=== PATIENT | male | born 1975 | race Caucasian/White ===

== ENCOUNTER 2017-11-27 09:15 | Inpatient (IN) | payer BC ==
[2017-11-27 09:29] VITALS: BMI 39.2
--- NOTE | 2017-11-27 10:34 | HP ---
COWS - Scale Resting Pulse: 0= [place] 80 or Below Sweatin=Flushed/Facial Moisture Restless Observation: 3= Extraneous Movement Pupil Size: 1= Pupils >than Normal Bone or Joint Aches: 1= Mild Discomfort Runny Nose/ Eye Tearin= Nasal Congestion GI Upset > 30mins: 1= Stomach Cramp Tremor Observation: 2= Slight Tremor Visible Yawning Observation: 2= >3x During Session Anxiety or Irritability: 4=Extreme Anxiety Goose Flesh Skin: 0=Smooth Skin COWS Score: 17 Admission ROS S - HPI Chief Complaint: "i want to get better, I am sick of living like this. I am scared for my health " Allergies/Adverse Reactions: Allergies Allergy/AdvReac Type Severity Reaction Status Date / Time No Known Allergies Allergy Verified 11/27/17 09:41 History of Present Illness: 42 year old male with a "10 year history of "on & off" oxycodone dependency presents here from detox. Pt stated he was dependent on alcohol about 10 years ago but does not drink anymore. Pt stated he detoxed at [facility] years ago following which he had about a 2 month sobriety period but relapsed since then. Pt denies any medical history, stated he was dx with anxiety but never took the meds for it Exam Limitations: No Limitations - Ebola screening Have you traveled outside of the country in the last 21 days: No (N) Have you had contact with anyone from an Ebola affected area: No Have you been sick,other than usual withdrawal symptoms: No Do you have a fever: No - Review of Systems Constitutional: Chills, Changes in sleep EENT: reports: Other (Does not see out of R eye) Respiratory: reports: No Symptoms reported Cardiac: reports: Palpitations GI: reports: No Symptoms Reported : reports: No Symptoms Reported Musculoskeletal: reports: No Symptoms Reported Integumentary: reports: [place] Neuro: reports: No Symptoms reported Endocrine: reports: [place] Hematology: reports: No Symptoms Reported Psychiatric: reports: Judgement Intact, Anxious Patient History - Patient Medical History Hx Anemia: No Hx Asthma: No Hx Chronic Obstructive Pulmonary Disease (COPD): No Hx Cancer: No Hx Cardiac Disorders: No Hx Congestive Heart Failure: No Hx Hypertension: No Hx Hypercholesterolemia: No Hx Pacemaker: No HX Cerebrovascular Accident: No Hx Seizures: No Hx Diabetes: No Hx Gastrointestinal Disorders: No Hx Liver Disease: No Hx Genitourinary Disorders: No Hx Sexually Transmitted Disorders: No Hx Renal Disease (ESRD): No Hx Thyroid Disease: No Hx Human Immunodeficiency Virus (HIV): No Hx Hepatitis C: No Hx Depression: No Hx Suicide Attempt: No Hx Bipolar Disorder: No Hx Schizophrenia: No - Patient Surgical History Past Surgical History: Yes Hx Neurologic Surgery: No Hx Cataract Extraction: No Hx Cardiac Surgery: No Hx Lung Surgery: No Hx Breast Surgery: No Hx Breast Biopsy: No Hx Abdominal Surgery: No Hx Appendectomy: No Hx Cholecystectomy: No Hx Genitourinary Surgery: No Hx Section: No Hx Orthopedic Surgery: No Other Surgical History: R eye surgery x 25 yrs ago Anesthesia Reaction: No - PPD History Previous Implant?: Yes Documented Results: Negative w/o proof Implanted On Prior [facility] Admission?: No PPD to be Administered?: Yes - Reproductive History Patient is a Female of Child Bearing Age (11 -55 yrs old): No - Smoking Cessation Smoking history: Never smoked Hx Chewing Tobacco Use: No Initiated information on smoking cessation: No 'Breaking Loose' booklet given: 11/27/17 - Substances Abused Oxycodone Route: Oral Frequency: Daily Amount used: 260mg Age of first use: 32 Date of Last Use: 11/27/17 Family Disease History - Family Disease History Family Disease History: Diabetes: Grandparent (Grandma), Mother Admission Physical Exam [facility] - Vital Signs Vital Signs: Vital Signs - 24 hr 11/27/17 09:26 Temperature 96.7 F L Pulse Rate 83 Respiratory 20 Rate Blood Pressure 151/99 - Physical General Appearance: Yes: Moderate Distress, Anxious HEENTM: Yes: Other (R eye deformity) Respiratory: Yes: Within Normal Limits, Chest Non-Tender, Lungs Clear, Normal Breath Sounds, No Respiratory Distress Breast: Yes: Breast Exam Deferred Cardiology: Yes: Regular Rhythm, Regular Rate, S1, S2 Genitourinary: Yes: Polyuria Back: Yes: Normal Inspection Musculoskeletal: Yes: Within Normal Limits Extremities: Yes: Normal Capillary Refill, Normal Inspection Neurological: Yes: Within Normal Limits, Fully Oriented, Alert, Motor Strength 5 /5 Integumentary: Yes: Normal Color, Dry, Warm Lymphatic: Yes: Within Normal Limits - Diagnostic (1) Opioid dependence with withdrawal Current Visit: Yes Status: Acute Cleared for Admission [facility] - Detox or Rehab [facility] Level of Care: Medically Managed Detox Regimen/Protocol: Methadone [facility] Breath Alcohol Content Breath Alcohol Content: 0 Urine Drug Screen - Results Drug Screen Negative: No Urine Drug Screen Results: OXY-Oxycodone
[2017-11-27] MEDS ORDERED: METHADONE HCL 10 MG TABLET (FOR DETOX USE ONLY) PO ONE ×2 (10:56→23:00)
[2017-11-27] MEDS ORDERED: guaiFENesin/D-METHORPHAN HB 10 ML UNIT-DOSE CUPS PO PRN (10:56)
[2017-11-27] MEDS ORDERED: ACETAMINOPHEN 325 MG TABLET (FP) PO PRN (10:56)
[2017-11-27] MEDS ORDERED: MENTHOL/PHENOL 1 EACH UD MM PRN (10:56)
[2017-11-27] MEDS ORDERED: MAGNESIUM CITRATE 300 ML BOTTLE PO PRN (10:56)
[2017-11-27] MEDS ORDERED: P-EPHED 60MG/TRIPROLIDI 2.5MG TABLET PO PRN (10:56)
[2017-11-27] MEDS ORDERED: MAGNESIUM HYDROX 2400MG/30ML ORAL SUSPENSION 30 ML CUP PO PRN (10:56)
[2017-11-27] MEDS ORDERED: MAG HYDROX/AL HYDROX/SIMETH 30 ML UNIT-DOSE CUP PO PRN (10:56)
[2017-11-27] MEDS ORDERED: LOPERAMIDE HCL 2 MG CAPSULE PO PRN (10:56)
[2017-11-27] MEDS: diazePAM 5 MG TABLET PO PRN ×3 (12:19→22:08)
[2017-11-27] MEDS: THIAMINE HCL 100 MG TABLET (FP) PO SCH (22:08)
[2017-11-27 22:25] LABS: URINE APPEARANCE CLEAR; URINE BILIRUBIN NEGATIVE (NEGATIVE); URINE BLOOD NEGATIVE (NEGATIVE); URINE COLOR STRAW; URINE GLUCOSE (UA) NEGATIVE (NEGATIVE); URINE KETONE NEGATIVE (NEGATIVE); URINE LEUK ESTERASE NEGATIVE (NEGATIVE); URINE NITRITE NEGATIVE (NEGATIVE); URINE PROTEIN NEGATIVE (NEGATIVE); URINE UROBILINOGEN NEGATIVE mg/dL (0.2-1.0)
[2017-11-28] MEDS: IBUPROFEN 400 MG TABLET (FP) PO PRN ×3 (00:50→22:11)
[2017-11-28] MEDS: diazePAM 5 MG TABLET PO PRN ×4 (02:17→19:22)
[2017-11-28] MEDS ORDERED: METHADONE HCL 10 MG TABLET (FOR DETOX USE ONLY) PO ONE (10:00)
[2017-11-28 10:05] LABS: HEMATOCRIT 49.2 % (35.4-49); HEMOGLOBIN 16.4 GM/dL (11.7-16.9); MCHC 33.4 g/dl (32.0-35.9); MEAN CELL VOLUME 92.8 fl (80-96); MEAN PLT VOLUME 7.1 fl (7.5-11.1); PLATELET COUNT 226 K/MM3 (134-434); RDW 13.4 % (11.9-15.9); WHITE BLOOD COUNT 8.3 K/mm3 (4.0-10.0)
[2017-11-28] MEDS: PRENATAL VITAMINS W/ FOLIC ACID TABLET (FP) PO SCH (10:36)
[2017-11-28 10:41] LABS: CHLORIDE 105 mmol/L (98-107); POTASSIUM 4.7 mmol/L (3.5-5.1); SODIUM 141 mmol/L (136-145)
--- NOTE | 2017-11-28 10:46 | CONSULT ---
[facility] Psychiatric Consult - Data Date of interview: 11/28/17 Admission source: [facility] Identifying data: Pt. is a 41 year old male, single, without kids, and currently unemployed. This is patient's first admission to [facility]. Pt. admitted to for opiate dependence. Substance Abuse History: - Substances Abused. Oxycodone. Route: Oral. Frequency: Daily. Amount used: 260mg. Age of first use: 32. Date of Last Use : 11/27/17 Medical History: [facility] eye surgery 25 years ago. Psychiatric History: Pt. denies h/o psychiatric hospitalizations, OPC, and suicide attempts. Pt. reports a h/o anxiety and panic attacks. Reports accepting lexapro approximately 10 years ago from his PCP. States he only took the medications for two weeks. Reports having increase anxiety one week ago and requesing to restart lexapro. Physical/Sexual Abuse/Trauma History: Denies. Mental Status Exam - Mental Status Exam Alert and Oriented to: Time, Place, Person Cognitive Function: Good Patient Appearance: Well Groomed Mood: Euthymic Affect: Mood Congruent Patient Behavior: Appropriate, Cooperative Speech Pattern: Clear, Appropriate Voice Loudness: Normal Thought Process: Goal Oriented Thought Disorder: Not Present Hallucinations: Denies Suicidal Ideation: Denies Homicidal Ideation: Denies Insight/Judgement: Poor Sleep: Fair Appetite: Good Muscle strength/Tone: Normal Gait/Station: Normal Psychiatric Findings - Problem List ([place] 1, 2,3) (1) ZION (generalized anxiety disorder) Current Visit: Yes Status: Chronic Comment: Self reports. (2) Opioid dependence with withdrawal Current Visit: Yes Status: Acute - Initial Treatment Plan Initial Treatment Plan: Psychoeducation provided. Detoxification in progress. Lexapro 10mg PO daily. Benefits and side effects discussed. Verbal consent given. Will contine to monitor patient.
[2017-11-28 10:52] LABS: ALBUMIN 4.2 g/dl (3.4-5.0); ALK PHOS 78 U/L (45-117); ANION GAP 7 (8-16); BILIRUBIN,TOTAL 0.5 mg/dL (0.2-1.0); BLOOD UREA NITROGEN 13 mg/dL (7-18); CALCIUM 9.6 mg/dL (8.5-10.1); CO2 29 mmol/L (21-32); CREATININE 0.9 mg/dL (0.7-1.3); GLUCOSE,RANDOM 94 mg/dL (74-106); SGOT/AST 20 U/L (15-37); SGPT/ALT 47 U/L (12-78); TOT PROT 7.8 g/dl (6.4-8.2)
--- NOTE | 2017-11-28 10:53 | PN ---
BHS COWS - Scale Resting Pulse: 2= [place] 101-120 Sweatin= Chills/Flushing Restless Observation: 1= Difficult to Sit Still Pupil Size: 0= Normal to Room Light Bone or Joint Aches: 2= Severe Diffuse Aches Runny Nose/ Eye Tearin= Nasal Congestion GI Upset > 30mins: 2= Nausea/Diarrhea Tremor Observation of Outstretched Hands: 2= Slight Tremor Visible Yawning Observation: 0= None Anxiety or Irritability: 2=Irritable/Anxious Goose Flesh Skin: 0=Smooth Skin COWS Score: 13 BHS Progress Note (SOAP) Subjective: sweat joint aches irritable anxiety Objective: 11/28/17 10:53 Vital Signs Temperature 97.3 F L 11/28/17 10:47 Pulse Rate 112 H 11/28/17 10:47 Respiratory Rate 18 11/28/17 10:47 Blood Pressure 114/63 11/28/17 10:47 O2 Sat by Pulse Oximetry (%) Laboratory Last Values WBC 8.3 K/mm3 (4.0-10.0) 11/28/17 07:30 RBC 5.30 M/mm3 (4.00-5.60) 11/28/17 07:30 Hgb 16.4 GM/dL (11.7-16.9) 11/28/17 07:30 Hct 49.2 % (35.4-49) H 11/28/17 07:30 MCV 92.8 fl (80-96) 11/28/17 07:30 MCH 31.0 pg (25.7-33.7) 11/28/17 07:30 MCHC 33.4 g/dl (32.0-35.9) 11/28/17 07:30 RDW 13.4 % (11.9-15.9) 11/28/17 07:30 Plt Count 226 K/MM3 (134-434) 11/28/17 07:30 MPV 7.1 fl (7.5-11.1) L 11/28/17 07:30 Sodium 141 mmol/L (136-145) 11/28/17 07:30 Potassium 4.7 mmol/L (3.5-5.1) 11/28/17 07:30 Chloride 105 mmol/L (98-107) 11/28/17 07:30 Urine Color Straw 11/27/17 15:20 Urine Appearance Clear 11/27/17 15:20 Urine pH 6.0 (5.0-8.0) 11/27/17 15:20 Ur Specific [place] 1.011 (1.001-1.035) 11/27/17 15:20 Urine Protein Negative (NEGATIVE) 11/27/17 15:20 Urine Glucose (UA) Negative (NEGATIVE) 11/27/17 15:20 Urine Ketones Negative (NEGATIVE) 11/27/17 15:20 Urine Blood Negative (NEGATIVE) 11/27/17 15:20 Urine Nitrite Negative (NEGATIVE) 11/27/17 15:20 Urine Bilirubin Negative (NEGATIVE) 11/27/17 15:20 Urine Urobilinogen Negative mg/dL (0.2-1.0) 11/27/17 15:20 Ur Leukocyte Esterase Negative (NEGATIVE) 11/27/17 15:20 lab noted Assessment: 11/28/17 10:53 withdrawal sx Plan: continue detox
[2017-11-28] MEDS: ESCITALOPRAM OXALATE 10 MG TABLET (FP) PO SCH (11:53)
--- NOTE | 2017-11-28 13:10 | EKG ---
Test Reason : Blood Pressure : / mmHG Vent. Rate : 072 BPM Atrial Rate : 072 BPM P-R Int : 164 ms QRS Dur : 088 ms QT Int : 382 ms P-R-T Axes : 031 -02 015 degrees QTc Int : 418 ms NORMAL SINUS RHYTHM NORMAL ECG NO PREVIOUS ECGS AVAILABLE Confirmed by DAYTON PRINGLE, DANNI ([id number]) on 11/28/2017 1:10:04 PM Referred By: Mark Mojica Confirmed By:DANNI BURRIS MD
[2017-11-28] MEDS: THIAMINE HCL 100 MG TABLET (FP) PO SCH (22:11)
[2017-11-29] MEDS: diazePAM 5 MG TABLET PO PRN ×5 (01:18→22:26)
[2017-11-29] MEDS: IBUPROFEN 400 MG TABLET (FP) PO PRN (06:38)
--- NOTE | 2017-11-29 09:24 | PN ---
BHS COWS - Scale Resting Pulse: 1= [place] 81-100 Sweatin= Chills/Flushing Restless Observation: 1= Difficult to Sit Still Pupil Size: 1= Pupils >than Normal Bone or Joint Aches: 1= Mild Discomfort Runny Nose/ Eye Tearin= Nasal Congestion GI Upset > 30mins: 2= Nausea/Diarrhea Tremor Observation of Outstretched Hands: 1= Tremor [place], Not Seen Yawning Observation: 1= 1-2x During Session Anxiety or Irritability: 2=Irritable/Anxious Goose Flesh Skin: 3=Piloerection COWS Score: 15 BHS Progress Note (SOAP) Subjective: nausea, sweats, interrupted sleep, anxiety, tremors, wishes to accelerate detox schedule to return to work Objective: 11/29/17 09:23 Vital Signs - 24 hr 11/28/17 11/28/17 11/28/17 10:47 15:20 17:47 Temperature 97.3 F L 97.7 F 97.7 F Pulse Rate 112 H 95 H 71 Respiratory 18 20 18 Rate Blood Pressure 114/63 147/86 120/74 11/28/17 11/29/17 11/29/17 21:47 00:30 03:30 Temperature 97.7 F Pulse Rate 67 Respiratory 18 18 18 Rate Blood Pressure 140/93 11/29/17 06:20 Temperature 96.4 F L Pulse Rate 51 L Respiratory 16 Rate Blood Pressure 125/81 Laboratory Tests 11/27/17 11/28/17 11/28/17 15:20 07:30 07:30 WBC 8.3 RBC 5.30 Hgb 16.4 Hct 49.2 H MCV 92.8 MCH 31.0 MCHC 33.4 RDW 13.4 Plt Count 226 MPV 7.1 L Sodium 141 Potassium 4.7 Chloride 105 Carbon Dioxide 29 Anion Gap 7 L BUN 13 Creatinine 0.9 Creat Clearance w eGFR > 60 Random Glucose 94 Calcium 9.6 Total Bilirubin 0.5 AST 20 ALT 47 Alkaline Phosphatase 78 Total Protein 7.8 Albumin 4.2 Urine Color Straw Urine Appearance Clear Urine pH 6.0 Ur Specific [place] 1.011 Urine Protein Negative Urine Glucose (UA) Negative Urine Ketones Negative Urine Blood Negative Urine Nitrite Negative Urine Bilirubin Negative Urine Urobilinogen Negative Ur Leukocyte Esterase Negative RPR Titer 11/28/17 07:30 WBC RBC Hgb Hct MCV MCH MCHC RDW Plt Count MPV Sodium Potassium Chloride Carbon Dioxide Anion Gap BUN Creatinine Creat Clearance w eGFR Random Glucose Calcium Total Bilirubin AST ALT Alkaline Phosphatase Total Protein Albumin Urine Color Urine Appearance Urine pH Ur Specific [place] Urine Protein Urine Glucose (UA) Urine Ketones Urine Blood Urine Nitrite Urine Bilirubin Urine Urobilinogen Ur Leukocyte Esterase RPR Titer Nonreactive Assessment: 11/29/17 09:23 withdrawal sx, cotn detox, schedule accelearted discussed patient is to start MAT w suboxone after d/c from [facility], fluids, encourage ambualtion
[2017-11-29] MEDS ORDERED: METHADONE HCL 5 MG TABLET (FOR DETOX USE ONLY) PO ONE (10:00)
[2017-11-29] MEDS: PRENATAL VITAMINS W/ FOLIC ACID TABLET (FP) PO SCH (10:19)
[2017-11-29] MEDS: ESCITALOPRAM OXALATE 10 MG TABLET (FP) PO SCH (10:19)
[2017-11-29] MEDS: THIAMINE HCL 100 MG TABLET (FP) PO SCH (22:26)
[2017-11-30] MEDS: diazePAM 5 MG TABLET PO PRN (02:29)
[2017-11-30] MEDS: IBUPROFEN 400 MG TABLET (FP) PO PRN (02:30)
--- NOTE | 2017-11-30 09:08 | DS ---
[facility] Detox Discharge Summary Admission Date: 11/27/17 Discharge Date: 11/30/17 - History Present History: Opioid Dependence - Physical Exam Results Vital Signs: Vital Signs Temperature 97 F L 11/30/17 06:18 Pulse Rate 53 L 11/30/17 06:18 Respiratory Rate 16 11/30/17 06:18 Blood Pressure 136/87 11/30/17 06:18 O2 Sat by Pulse Oximetry (%) Pertinent Admission Physical Exam Findings: withdrawal sx Vital Signs Temperature 97 F L 11/30/17 06:18 Pulse Rate 53 L 11/30/17 06:18 Respiratory Rate 16 11/30/17 06:18 Blood Pressure 136/87 11/30/17 06:18 O2 Sat by Pulse Oximetry (%) Laboratory Last Values WBC 8.3 K/mm3 (4.0-10.0) 11/28/17 07:30 RBC 5.30 M/mm3 (4.00-5.60) 11/28/17 07:30 Hgb 16.4 GM/dL (11.7-16.9) 11/28/17 07:30 Hct 49.2 % (35.4-49) H 11/28/17 07:30 MCV 92.8 fl (80-96) 11/28/17 07:30 MCH 31.0 pg (25.7-33.7) 11/28/17 07:30 MCHC 33.4 g/dl (32.0-35.9) 11/28/17 07:30 RDW 13.4 % (11.9-15.9) 11/28/17 07:30 Plt Count 226 K/MM3 (134-434) 11/28/17 07:30 MPV 7.1 fl (7.5-11.1) L 11/28/17 07:30 Sodium 141 mmol/L (136-145) 11/28/17 07:30 Potassium 4.7 mmol/L (3.5-5.1) 11/28/17 07:30 Chloride 105 mmol/L (98-107) 11/28/17 07:30 Carbon Dioxide 29 mmol/L (21-32) 11/28/17 07:30 Anion Gap 7 (8-16) L 11/28/17 07:30 BUN 13 mg/dL (7-18) 11/28/17 07:30 Creatinine 0.9 mg/dL (0.7-1.3) 11/28/17 07:30 Creat Clearance w eGFR > 60 (>60) 11/28/17 07:30 Random Glucose 94 mg/dL (74-106) 11/28/17 07:30 Calcium 9.6 mg/dL (8.5-10.1) 11/28/17 07:30 Total Bilirubin 0.5 mg/dL (0.2-1.0) 11/28/17 07:30 AST 20 U/L (15-37) 11/28/17 07:30 ALT 47 U/L (12-78) 11/28/17 07:30 Alkaline Phosphatase 78 U/L (45-117) 11/28/17 07:30 Total Protein 7.8 g/dl (6.4-8.2) 11/28/17 07:30 Albumin 4.2 g/dl (3.4-5.0) 11/28/17 07:30 Urine Color Straw 11/27/17 15:20 Urine Appearance Clear 11/27/17 15:20 Urine pH 6.0 (5.0-8.0) 11/27/17 15:20 Ur Specific [place] 1.011 (1.001-1.035) 11/27/17 15:20 Urine Protein Negative (NEGATIVE) 11/27/17 15:20 Urine Glucose (UA) Negative (NEGATIVE) 11/27/17 15:20 Urine Ketones Negative (NEGATIVE) 11/27/17 15:20 Urine Blood Negative (NEGATIVE) 11/27/17 15:20 Urine Nitrite Negative (NEGATIVE) 11/27/17 15:20 Urine Bilirubin Negative (NEGATIVE) 11/27/17 15:20 Urine Urobilinogen Negative mg/dL (0.2-1.0) 11/27/17 15:20 Ur Leukocyte Esterase Negative (NEGATIVE) 11/27/17 15:20 RPR Titer Nonreactive (NONREACTIVE) 11/28/17 07:30 lab noted - Treatment Hospital Course: Detox Protocol Followed, Detoxed Safely, Responded well, Discharged Condition Good, Rehab Referral Accepted Patient has Accepted a Rehab Referral to: as per counselor arranged - Medication Discharge Medications: Ambulatory Orders NK [No Known Home Medication] 11/27/17 - Diagnosis (1) Opioid dependence with withdrawal Current Visit: Yes Status: Acute - AMA Did Patient Leave Against Medical Advice: No
[2017-11-30] MEDS: PRENATAL VITAMINS W/ FOLIC ACID TABLET (FP) PO SCH (09:13)
[2017-11-30] MEDS: ESCITALOPRAM OXALATE 10 MG TABLET (FP) PO SCH (09:13)
[2017-11-30] MEDS ORDERED: METHADONE HCL 5 MG TABLET (FOR DETOX USE ONLY) PO ONE (10:00)
[2017-11-30] MEDS ORDERED: METHADONE HCL 10 MG TABLET (FOR DETOX USE ONLY) PO ONE (10:00)
[2017-11-30 10:36] VITALS: BP 120/80; PULSE 60; TEMP 96.1
[2017-12-01] MEDS ORDERED: METHADONE HCL 5 MG TABLET (FOR DETOX USE ONLY) PO ONE (06:00)
[2017-12-01] MEDS ORDERED: METHADONE HCL 10 MG TABLET (FOR DETOX USE ONLY) PO ONE (10:00)
[2017-12-02] MEDS ORDERED: METHADONE HCL 5 MG TABLET (FOR DETOX USE ONLY) PO ONE (06:00)
== END 2017-11-30 09:32 | disposition home or self-care (01) | DRG 773 ==
LOC: YASAS 09:15 → Y6N 10:33
PROVIDERS: ADMIT Internal Medicine; ATTEND Internal Medicine
PROC: HZ2ZZZZ Detoxification Services for Substance Abuse Treatment (ICD-10-PCS; principal; 2017-11-27)
DX: F11.23 Opioid dependence with withdrawal (principal); F41.1 Generalized anxiety disorder; F32.9 Major depressive disorder, single episode, unspecified; E86.0 Dehydration; E66.9 Obesity, unspecified; Z68.39 Body mass index [BMI] 39.0-39.9, adult
CPT/HCPCS: 36415; 80053; 81003; 85027; 86593; 93005; 93010